=== PATIENT | male | born 1985 | race Caucasian/White ===

== ENCOUNTER 2021-06-01 15:09 | Emergency (ER) | payer OTHER ==
[2021-06-01 15:21] VITALS: BP 160/116
[2021-06-01] MEDS ORDERED: predniSONE 20 MG TABLET PO STA (16:54)
[2021-06-01] MEDS ORDERED: oxyCODONE 5 MG TABLET PO STA (16:54)
--- NOTE | 2021-06-01 16:57 | ED Physician Documentation ---
PD HPI LOWER EXT INJURY - Stated complaint Stated Complaint: LT LEG PX - Chief complaint Chief Complaint: Ext Problem - History obtained from History obtained from: Patient - Additional information Additional information: Otherwise healthy 35-year-old gentleman has a history of a lumbar laminectomy and discectomy in 2012. Over the last 4 weeks without specific trauma he has had numbness and tingling in his left leg. He had always had some numbness in the thigh but now it extends down to the knee and he has difficulty with dorsiflexion of the left foot due to weakness. He is being scheduled for an MRI by his physician but it has not been scheduled or approved by [facility] yet. He denies saddle anesthesia, fevers, incontinence. Review of Systems Constitutional: reports: Reviewed and negative Eyes: reports: Reviewed and negative Ears: reports: Reviewed and negative Nose: reports: Reviewed and negative Cardiac: reports: Reviewed and negative PD PAST MEDICAL HISTORY - Present Medications Home Medications: Ambulatory Orders Medication Instructions Recorded Confirmed Gabapentin [Neurontin] 300 mg PO TID 06/01/21 06/01/21 Naproxen [Naprosyn] 250 mg PO BID 06/01/21 06/01/21 Oxycodone HCl/Acetaminophen 1 - 2 each PO Q6H PRN #14 tablet 06/01/21 [Percocet 5-325 mg Tablet] Telmisartan 40 mg PO DAILY 06/01/21 06/01/21 predniSONE [Deltasone] 20 mg PO [id number] #21 tab 06/01/21 - Allergies Allergies/Adverse Reactions: Allergies Allergy/AdvReac Type Severity Reaction Status Date / Time No Known Drug Allergies Allergy Verified 06/01/21 15:16 PD ED PE NORMAL - Vitals Vital signs reviewed: Yes - General General: Alert and oriented X 3, No acute distress - HEENT HEENT: PERRL, EOMI - Neck Neck: Supple, no meningeal sign, No bony TTP - Cardiac Cardiac: RRR, No murmur - Respiratory Respiratory: Clear bilaterally - Back Back: No CVA TTP, No spinal TTP - Derm Derm: Normal color, Warm and dry - Extremities Extremities: Other (Diminished L4 reflexes bilaterally but more diminished on the left than the right. Diminished sensation on the lateral side of the left calf, throughout the leg is symmetric. Severe weakness in dorsiflexion of the left foot.) - Neuro Neuro: Alert and oriented X 3, Normal speech Results - Vitals Vitals: Vital Signs - 24 hr 06/01/21 15:18 Temperature 36.9 C Heart Rate 105 H Respiratory 18 Rate Blood Pressure 160/116 H O2 Saturation 97 Oxygen O2 Source Room air PD MEDICAL DECISION MAKING - ED course ED course: 35-year-old gentleman with lumbar radiculopathy without "red flag" for a spinal emergency. He is already on NSAIDs and gabapentin and this I will add some narcotics and a steroid burst pending follow-up. Departure - Departure Disposition: Home, Self Care Clinical Impression: Lumbar radiculopathy, acute Condition: Good Record reviewed to determine appropriate education?: Yes Instructions: ED Sciatica Prescriptions: predniSONE [Deltasone] 20 mg PO [id number] #21 tab Oxycodone HCl/Acetaminophen [Percocet 5-325 mg Tablet] 1 - 2 each PO Q6H PRN #14 tablet PRN Reason: pain Comments: I sent your prescriptions electronically to [facility] in [place]. I agree that your symptoms are consistent with a pinched nerve in your back, probably the L4-L5 left nerve root. Work with [facility] to get that MRI scheduled so that you can arrange appropriate specialist follow-up. Return for new or worsening symptoms. I am prescribing a short course of narcotic pain medication for you. These are potentially dangerous and addictive medications that should be used carefully. These medications may constipate you. Take an mkzq-jcq-xhgyrwv stool softener (docusate) twice daily with plenty of water while taking these medications. If you go 24 hours without a bowel movement, take bynl-knu-itvzijy miralax, per package instructions. Do not drink or drive while taking these medications. If you received narcotic or sedating medications while in the emergency department, do not drive for 24 hours. Store this medication in a safe, secure place and out of reach of children. It is a violation of federal law to give or sell this medication to another person or to use in a manner other than prescribed. The ED will not refill narcotic prescriptions, including prescriptions lost or stolen. To dispose of unwanted medications: 1. [facility] [address] in [place] has a medication drop box. They accept prescription medications (in pill form) Tuesday through [place] 9:00 a.m. to 5:00 p.m. 2. [employer] accepts prescription medications (in pill form only) for disposal year round. Call for more information. 3. Contact the [facility] for the next [facility] sponsored prescription drug collection event. , [phone], or [phone]; Note that many narcotic pain relievers also contain Tylenol/acetaminophen. Please ensure that your total dose of acetaminophen from all sources does not exceed 3 g (3000 mg) per day.
== END 2021-06-01 17:08 | disposition home or self-care (01) ==
LOC: ED 15:09
DX: M54.16 Radiculopathy, lumbar region (principal)
CPT/HCPCS: 99282; 99283; A9270; J7512

== ENCOUNTER 2021-09-05 13:54 | Emergency (ER) | payer OTHER ==
[2021-09-05 14:07] VITALS: BP 143/98
[2021-09-05] MEDS ORDERED: KETOROLAC 60 MG/2 ML VIAL IM STA (14:24)
[2021-09-05] MEDS ORDERED: HYDROmorphone 1 MG/ML CARPUJECT IM STA (14:24)
--- NOTE | 2021-09-05 14:25 | ED Physician Documentation ---
PD HPI BACK PAIN - Stated complaint Stated Complaint: LOWER BACK/L LEG PAIN - Chief complaint Chief Complaint: Back Pain - History obtained from History obtained from: Patient - Additional information Additional information: He has a long history of back issues despite his relatively young age. When he was in his mid 20s had an L3/L4 laminectomy and partial discectomy. Lately he has been dealing with symptoms that are likely referable to a left L4 radiculopathy with severe low back pain radiating to the hip the anterior knee and then the medial calf. It is burning pain. He cannot get comfortable. He had an MRI a few weeks ago at [facility] showing multilevel stenosis and radicular issues with at least moderate narrowing at the left L4 neural foramina which I think is the cause of his symptoms. He is on gabapentin and for the last few days this has not been sufficient to manage his pain. He denies saddle anesthesia, fevers, or incontinence. Review of Systems Constitutional: denies: Fever, Chills GI: denies: Abdominal Pain, Nausea, Vomiting, Diarrhea : denies: Dysuria, Frequency, Incontinent PD PAST MEDICAL HISTORY - Present Medications Home Medications: Ambulatory Orders Medication Instructions Recorded Confirmed Gabapentin [Neurontin] 300 mg PO TID 06/01/21 09/05/21 Telmisartan 40 mg PO DAILY 06/01/21 09/05/21 Duloxetine HCl [Cymbalta] 60 mg PO DAILY 09/05/21 09/05/21 Oxycodone HCl/Acetaminophen 1 - 2 each PO Q6H PRN #14 tablet 09/05/21 [Percocet 5-325 mg Tablet] predniSONE [Deltasone] 20 mg PO [id number] #21 tab 09/05/21 - Allergies Allergies/Adverse Reactions: Allergies Allergy/AdvReac Type Severity Reaction Status Date / Time No Known Drug Allergies Allergy Verified 09/05/21 14:03 PD ED PE NORMAL - Vitals Vital signs reviewed: Yes - General General: Alert and oriented X 3, No acute distress - Abdomen Abdomen: Normal bowel sounds, Soft, Non tender - Back Back: No CVA TTP, No spinal TTP, Other (Mild tenderness to the low lumbar spine and sciatic notch on the left) - Extremities Extremities: Other (Mildly diminished sensation in the left L4 distribution and weakness in dorsiflexion of the left foot which she says is now chronic.) - Neuro Neuro: Alert and oriented X 3, Normal speech - Psych Psych: Normal mood, Normal affect Results - Vitals Vitals: Vital Signs - 24 hr 09/05/21 14:03 Temperature 36.4 C L Heart Rate 96 Respiratory 18 Rate Blood Pressure 143/98 H O2 Saturation 98 Oxygen O2 Source Room air PD MEDICAL DECISION MAKING - ED course ED course: This patient has seemingly uncomplicated musculoskeletal back pain. The patient has no "red flags." Specifically denies IV drug use, fevers, incontinence, saddle anesthesia. Spinal epidural abscess was considered, given that the patient has no fever, is not diabetic, has no spinal tenderness, does not use IV drugs, and has no bilateral neurologic symptoms, the diagnosis of spinal epidural abscess is considered exceedingly unlikely. I am prescribing a short course of short-acting opioid pain medication for this patient. I have reviewed the patients [employer] and no concerning findings were noted. I have discussed that the opioids are for short term therapy only, and will not be refilled from the ED. The patient and family were counseled as to the diagnosis and need for follow- up. I counseled the patient with regard to signs and symptoms that would necessitate an urgent reevaluation in the emergency department. They understand they are welcome to return at any time if worse or if not improving as expected. This document was made in part using voice recognition software. While efforts are made to proofread this documents, sound alike and grammatical errors may occur. Departure - Departure Disposition: 01 Home, Self Care Clinical Impression: Lumbosacral radiculopathy at L4 Condition: Good Record reviewed to determine appropriate education?: Yes Instructions: ED Sciatica Prescriptions: predniSONE [Deltasone] 20 mg PO [id number] #21 tab Oxycodone HCl/Acetaminophen [Percocet 5-325 mg Tablet] 1 - 2 each PO Q6H PRN #14 tablet PRN Reason: pain Comments: You can continue the gabapentin you are on. I sent your prescriptions electronically to [facility] in [place]. Call your doctor to arrange a follow-up appointment, make the next available appointment. In the interim, return anytime if worse or if new symptoms develop. I am prescribing a short course of narcotic pain medication for you. These are potentially dangerous and addictive medications that should be used carefully. These medications may constipate you. Take an adkm-xsv-siytuxy stool softener (d ocusate) twice daily with plenty of water while taking these medications. If you go 24 hours without a bowel movement, take kaen-qwf-mexyume miralax, per package instructions. Do not drink or drive while taking these medications. If you received narcotic or sedating medications while in the emergency department, do not drive for 24 hours. Store this medication in a safe, secure place and out of reach of children. It is a violation of federal law to give or sell this medication to another person or to use in a manner other than prescribed. The ED will not refill narcotic prescriptions, including prescriptions lost or stolen. To dispose of unwanted medications: 1. [facility] [address] in [place] has a medication drop box. They accept prescription medications (in pill form) Tuesday through Tuesday 9:00 a.m. to 5:00 p.m. 2. [facility] [place] [employer] accepts prescription medications (in pill form only) for disposal year round. Call for more information. 3. Contact the [facility] for the next [facility] sponsored prescription drug collection event. , [phone], or x [phone]; Note that many narcotic pain relievers also contain Tylenol/acetaminophen. Please ensure that your total dose of acetaminophen from all sources does not exceed 3 g (3000 mg) per day.
== END 2021-09-05 15:15 | disposition home or self-care (01) ==
LOC: ED 13:54
DX: M54.17 Radiculopathy, lumbosacral region (principal)
CPT/HCPCS: 96372; 99283; 99284; J1170

== ENCOUNTER 2022-05-06 10:45 | Emergency (ER) | payer OTHER ==
[2022-05-06] MEDS ORDERED: oxyCODONE 5 MG TABLET PO STA (13:00)
[2022-05-06] MEDS ORDERED: LIDOCAINE PATCH 5% TOP STA (13:00)
--- NOTE | 2022-05-06 13:03 | ED Physician Documentation ---
PD HPI BACK PAIN - Stated complaint Stated Complaint: BACK PX/NUMBNESS - Chief complaint Chief Complaint: Back Pain - History obtained from History obtained from: Patient - Additional information Additional information: Patient is a 36-year-old male with a long history of low back pain.He has had prior back surgeries including a laminectomy at L3-L4 and partial discectomy.4 months ago he had an L4-L5 laminectomy at [facility]. He has continued to have low back pain with numbness radiating down the left leg prior to and after his surgery. It is an aching and burning pain. He has been in touch with his Spine surgeon and an outpatient MRI has been ordered and is scheduled for early May. His pain has worsened over the past 4 to 5 days. Patient denies doing any activity or any known injury that would have worsened his pain.He has been on steroids in the past although it has been several months but did not find this medication particularly helpful. He denies fevers, bowel or bladder incontinence, saddle anesthesia, new weakness. Review of Systems Constitutional: denies: Fever Nose: denies: Congestion Cardiac: denies: Chest pain / pressure Respiratory: denies: Dyspnea GI: denies: Abdominal Pain : denies: Dysuria Musculoskeletal: reports: Back pain Neurologic: reports: Numbness. denies: Headache PD PAST MEDICAL HISTORY - Past Medical History Cardiovascular: Hypertension - Past Surgical History Ortho: Spine surgery - Present Medications Home Medications: Ambulatory Orders Medication Instructions Recorded Confirmed Telmisartan 40 mg PO DAILY 06/01/21 05/06/22 Cyclobenzaprine [Flexeril] 10 mg PO TID PRN #15 tablet 05/06/22 Lidocaine Patch 5% [Lidoderm Patch] 1 patch TOP DAILY PRN #10 patch 05/06/22 Oxycodone HCl/Acetaminophen 1 each PO Q6H PRN #12 tablet 05/06/22 [Percocet 5-325 mg Tablet] - Allergies Allergies/Adverse Reactions: Allergies Allergy/AdvReac Type Severity Reaction Status Date / Time No Known Drug Allergies Allergy Verified 05/06/22 11:04 - Social History Does the pt smoke?: No Smoking Status: Never smoker Does the pt drink ETOH?: No Does the pt have substance abuse?: No - Immunizations Immunizations are current?: Yes - POLST Patient has POLST: Yes PD ED PE NORMAL - General General: Alert and oriented X 3, No acute distress, Well developed/nourished - HEENT HEENT: Atraumatic - Neck Neck: Supple, no meningeal sign, No bony TTP - Cardiac Cardiac: RRR, No murmur - Respiratory Respiratory: No respiratory distress, Clear bilaterally - Abdomen Abdomen: Soft, Non tender - Back Back: No spinal TTP - Derm Derm: Warm and dry - Extremities Extremities: No edema, Other (Mildly decreased sensation in L5 distribution and Weak dorsiflexion on the left - Patient and prior records appears to be chronic; Pedal pulses intact bilaterally) Results - Vitals Vitals: Vital Signs - 24 hr 05/06/22 05/06/22 10:59 13:56 Temperature 36.8 C Heart Rate 98 76 Respiratory 16 16 Rate Blood Pressure 144/99 H 135/76 H O2 Saturation 96 97 Oxygen O2 Source Room air PD Medical Decision Making - ED course ED course: Patient presenting for evaluation of low back pain with radiculopathy. He has no red flag signs or symptoms in regards to his back pain Such as history of IV drug use, fever, saddle anesthesia or bowel or bladder incontinence.Epidural abscess and hematoma are considered unlikely given his history and exam. Patient does have an outpatient MRI scheduled. I do not see indications for emergent MRI today. I have prescribed a small amount of pain medication for the patient in addition to muscle relaxers as he does also report feeling some tightness in the low back. I explained he needs to have close follow-up with [facility] or his spine surgeon. Patient is aware of concerning symptoms to return for and is ambulatory at discharge. Departure - Departure Disposition: 01 Home, Self Care Clinical Impression: Lumbar radiculopathy Condition: Stable Instructions: ED Sciatica Prescriptions: Cyclobenzaprine [Flexeril] 10 mg PO TID PRN #15 tablet PRN Reason: Spasms Lidocaine Patch 5% [Lidoderm Patch] 1 patch TOP DAILY PRN #10 patch PRN Reason: pain Oxycodone HCl/Acetaminophen [Percocet 5-325 mg Tablet] 1 each PO Q6H PRN #12 tablet PRN Reason: pain Comments: [facility] [place] Please keep your MRI appointments. You may wish to contact your PCM through the [facility] for closer follow-up if you are not able to get in with your surgeon. Your PCM may also be able to send your MRI request to [facility] to see if we are able to schedule it sooner here. Anytime you have any worsening symptoms please consider return to the emergency department. I am prescribing a short course of narcotic pain medication for you. These are potentially dangerous and addictive medications that should be used carefully. These medications may constipate you. Take an hgjm-nyn-hfumafe stool softener (docusate) twice daily with plenty of water while taking these medications. If you go 24 hours without a bowel movement, take fvqb-vaa-bxjrift miralax, per package instructions. Do not drink or drive while taking these medications. If you received narcotic or sedating medications while in the emergency department, do not drive for 24 hours. Store this medication in a safe, secure place and out of reach of children. It is a violation of federal law to give or sell this medication to another person or to use in a manner other than prescribed. The ED will not refill narcotic prescriptions, including prescriptions lost or stolen. To dispose of unwanted medications: 1. [facility] [address] in [place] has a medication drop box. They accept prescription medications (in pill form) Tuesday through Tuesday 9:00 a.m. to 5:00 p.m. 2. [facility] accepts prescription medications (in pill form only) for disposal year round. Call for more information. 3. Contact the [facility] for the next [facility] sponsored prescription drug collection event. , [phone], or [phone]; Note that many narcotic pain relievers also contain Tylenol/acetaminophen. Please ensure that your total dose of acetaminophen from all sources does not exceed 3 g (3000 mg) per day. Discharge Date/Time: 05/06/22 13:57
[2022-05-06 13:57] VITALS: BP 135/76
== END 2022-05-06 13:57 | disposition home or self-care (01) ==
LOC: ED 10:45
DX: M54.16 Radiculopathy, lumbar region (principal); I10 Essential (primary) hypertension
CPT/HCPCS: 99283; 99284; A9270

== ENCOUNTER 2022-05-07 13:21 | Outpatient (CLI) | payer OTHER ==
--- NOTE | 2022-05-07 15:21 | MRI Report ---
PROCEDURE: CERVICAL SPINE WO INDICATIONS: CERVICAL RADICULOPATHY TECHNIQUE: Noncontrast sagittal T1 spin echo and T2 fast spin echo, sagittal STIR, foraminal oblique sagittal T2 fast spin echo, and axial gradient echo or T2 fast spin echo through the cervical spine. COMPARISON: None. FINDINGS: Image quality: Excellent. Alignment and Curvature: There is normal bony alignment. Bone Marrow: Marrow demonstrates normal overall signal. Spinal Cord: Visualized spinal cord has normal size and signal. No cerebellar tonsillar herniation. Paraspinous Soft Tissues: No paravertebral masses. Prevertebral soft tissues are normal in thicknes s. C2-C3: Right uncovertebral joint hypertrophy. No canal stenosis or foraminal stenosis. C3-C4: Minimal disc bulge, eccentric to the left. AP diameter of the canal is 11.6 mm. No canal emperatriz nosis or foraminal stenosis. C4-C5: Mild disc bulge. AP diameter of the canal is 11.2 mm. Bilateral uncovertebral joint hypertrop hy. Moderate bilateral foraminal narrowing with mild flattening deformity on the exiting bilateral C5 nerve roots. C5-C6: Diffuse disc bulge with mild superimposed central posterior disc protrusion indenting on the cord. AP diameter of the canal is 8.8 mL. There is right uncovertebral joint hypertrophy. There is a left facet joint cyst there is bilateral moderate to severe foraminal narrowing with bilateral forami nal C6 nerve root impingement.. C6-C7: No canal stenosis or foraminal stenosis. C7-T1: No canal stenosis or foraminal stenosis. IMPRESSION: 1. Mild diffuse spondylitic change. 2. The significant findings are at C5-C6, where there is a central posterior disc protrusion contribu ting to moderate canal stenosis. There is bilateral moderate to severe foraminal narrowing with bilat eral foraminal C6 nerve root impingement. 3. There is moderate bilateral foraminal narrowing at C4-C5. Reviewed by: Daniel Mendoza MD on 05/07/2022 3:20 PM PST Approved by: Daniel Mendoza MD on 05/07/2022 3:20 PM PST Station ID: [id number]
== END 2022-05-07 13:22 | disposition home or self-care (01) ==
LOC: DI 13:21
PROVIDERS: ATTEND General Practice
DX: M50.11 Cervical disc disorder with radiculopathy, high cervical region (principal); M47.22 Other spondylosis with radiculopathy, cervical region; M48.02 Spinal stenosis, cervical region

== ENCOUNTER 2022-12-22 19:13 | Outpatient (CLI) | payer OTHER | END 2022-12-22 19:14 | disposition home or self-care (01) | LOC: SC 19:13 | PROVIDERS: ATTEND Nurse Practitioner Family | DX: G47.33 Obstructive sleep apnea (adult) (pediatric) (principal); E66.9 Obesity, unspecified; Z68.35 Body mass index [BMI] 35.0-35.9, adult | CPT/HCPCS: 95810 ==

== ENCOUNTER 2023-01-18 13:00 | Outpatient (CLI) | payer OTHER ==
--- NOTE | 2023-01-18 13:41 | Sleep Patient Instructions ---
Sleep Center Visit Summary - Patient Visit Information Reason for Visit: Sleep study follow-up - Patient Instructions Instructions Attached: CPAP, CPAP Dc Additional Instructions: You are being started on CPAP therapy with pressure setting at 4-15 cmH2O. You will need to call the sleep care office to set up your follow up once you have your APAP machine and we will schedule a visit to check compliance and response to therapy at that time. You may call the office with any concerns about pressure feeling too low or too much for adjustment, if needed. You should contact DME for any questions or concerns about mask or equipment. Please call office to schedule a follow up appointment in the sleep care office one month after obtaining CPAP. - Clinic Information Contact: [facility] [address] [place] [address] [email or web address] T: [phone]
--- NOTE | 2023-01-18 13:44 | SLEEP CARE CONSULTATION ---
Information from patient questionnaire entered by Kaitlin Staples. I have reviewed and concur with the information entered by Kaitlin Staples. This document represents the service I personally performed and the decisions made by , Lilo Samano ARNP. History of Present Illness Service Date and Time: 01/18/2023 1300 Initial [place] Sleepiness Scale score: 8 (12/01/22) Current [place] Sleepiness Scale score: 7 (01/18/23) Additional HPI information: UBALDO GRECO returns for follow up and results of the recently performed polysomnography. Sleep study showed mild obstructive sleep apnea with an average AHI of 8.6 and antonio oxygen saturation of 81%. I explained the pathophysiology behind obstructive sleep apnea. We then spent quite a bit of time discussing different treatment options. For mild obstructive sleep apnea, surgery and oral appliance are alternatives to nasal CPAP therapy but in moderate or severe cases, nasal CPAP is the most effective and reliable treatment. Because apnea is primarily in supine position, then po sitional management therapy could be effective. Methods discussed such as positioning with pillows, using a T-shirt with tennis balls in the back or commercial products that have a pillow format on back to prevent supine sleep. I reviewed the impact of weight changes on sleep apnea and strongly recommended losing weight. After some discussion, the patient opted to go with the nasal CPAP therapy. Nasal autoCPAP set at 4-15 cmH20 will be ordered with rationale explained. A manual titration study will be ordered if unable to find optimal pressure with office adjustments. I explained how CPAP machine works and what to expect when using the machine. Using CPAP every night in order to get used to it was emphasized. Patient advised to put CPAP mask on before getting into bed so as not to fall asleep without CPAP. To assist acclimation to CPAP use, it could also be used for a short time during day while reading or watching TV. The patient was instructed to call the CPAP supplier to discuss any mechanical problem that may occur. If the mask given is uncomfortable or is difficult to keep on through the night even with adjustment, contact the CPAP supplier as many will replace with another mask style if notified before 30 days. If snoring or perceives is not getting enough air or too much air from the machine, notify this office. Patient does not drink alcohol. Patient was cautioned about risks of drowsy driving until sleepiness symptoms resolve. Patient denies drowsy driving. Sleep Study - Results Type of Sleep Study: Polysomnography (COMPLETED 12/22/22) Prior sleep studies: Yes Polysomnography/Home Sleep Study results: IMPRESSION: The quality of the study is good. The patient had normal sleep efficiency. The sleep architecture was abnormal for sleep fragmentation and reduced amount of time spent in slow wave sleep (N3). Respiratory monitoring showed mild obstructive sleep apnea-hypopnea (AHI = 8.6) associated with frequent arousals, oxyhemoglobin desaturation and mild hypoxia (antonio oxygen saturation of 81%). The respiratory events occurred mainly during supine sleep (supine AHI = 11.5; non-supine = 5.50). Snore was light to loud in intensity. There was no significant periodic leg movement of sleep. Cardiac rhythm was normal sinus rhythm without significant arrhythmia. No abnormal behavior (parasomnia) observed during the night. Allergies and Home Medications Known drug allergies: No Drug allergies reviewed: Yes Home medication list reviewed: Yes (no changes) Allergy and home medication list: Allergies No Known Drug Allergies Allergy (Verified 01/14/23 09:44) Review of Systems Review of systems same as previous: Yes (no changes) Physical Exam Vital signs obtained and entered by: KAITLIN Spain MA Blood Pressure: 136/98 (LEFT ARM) Cuff size: regular Heart Rate: 115 O2 Saturation: 96 Height: 6 ft 4 in Weight: 297 lb 3.2 oz Body Mass Index: 36.1 BMI Classification: Obese Impression and Plan 1. Obstructive Sleep Apnea-Hypopnea Syndrome, mild, with lowest oxygen saturation of 81%. Obviously this is the cause of the patients symptoms of unrefreshed sleep, and excessive daytime sleepiness. Positive pressure therapy could benefit hypertension, anxiety and depression. As mentioned above, the patient will be started on nasal autoCPAP therapy with pressure set at 4-15 cmH2 O. A manual titration study will be completed if unable to find optimal treatment pressure with office adjustments. Compliance guidelines also reviewed. A copy of compliance guidelines will be given for reference at check out. Because the apnea is more severe supine, I instructed to avoid sleeping supine using pillow positioning until able to start CPAP use. 2. Hypoxemia, mild, with a antonio oxygen saturation of 81% and 6 minutes spent under 90%. His baseline oxygen saturation was normal with an average oxygen saturation of 93%. 3. Obesity, unspecified. Currently patients BMI is 36.1. Obesity increases the risk of apnea, CPAP pressure requirements and overall health risks especially cardiovascular and diabetes. Thus patient is advised to lose weight. * Nasal auto CPAP therapy, pressure at 4-15 cm H2O. * Attempt to lose weight. * Avoid alcohol consumption near bedtime. * Avoid supine sleep until using CPAP. * The patient is again cautioned about driving until sleepiness completely resolves. * Return one month after CPAP obtained. I will assess response to therapy and compliance at that time. Counseling Topics: Weight loss health impact Prescriptions: Auto CPAP, Device supplies Visit Type: In Office Time Spent with Patient (minutes): 22 Provider Statement: I spent 100% of the Face to Face Visit with the patient with greater than 50% spent counseling the patient and coordination of care.
[2023-01-18 13:50] VITALS: BP 136/98; O2SAT 96
== END 2023-01-18 13:01 | disposition home or self-care (01) ==
LOC: SC 13:00
PROVIDERS: ATTEND Nurse Practitioner Family
DX: G47.33 Obstructive sleep apnea (adult) (pediatric) (principal); R09.02 Hypoxemia; E66.9 Obesity, unspecified; Z68.36 Body mass index [BMI] 36.0-36.9, adult
CPT/HCPCS: 99212; 99213

== ENCOUNTER 2023-05-27 11:26 | Outpatient (CLI) | payer OTHER ==
--- NOTE | 2023-05-27 12:04 | Sleep Patient Instructions ---
Sleep Center Visit Summary - Patient Visit Information Reason for Visit: First Compliance with PAP therapy - Patient Instructions Instructions Attached: Apnea Sleep Mouthpieces Additional Instructions: You were here for follow up of CPAP therapy. You will be continued on CPAP therapy with pressure at 5-8 cmH2O. Please let us know if the pressure change is uncomfortable and we can make further adjustments of the pressure. You are having difficulty with the CPAP, so I have written for an oral appliance. You should follow up with sleep care in 1 month after using the oral appliance. You may contact us sooner for any questions or concerns. - Clinic Information Contact: [facility] [address] [place] [id number] [email or web address] T: [phone]
[2023-05-27 12:12] VITALS: BP 118/83; O2SAT 94
--- NOTE | 2023-05-27 12:12 | SLEEP CARE CONSULTATION ---
Information from patient questionnaire entered by Kaitlin Staples. I have reviewed and concur with the information entered by Kaitlin Staples. This document represents the service I personally performed and the decisions made by me, Lilo Samano ARNP. History of Present Illness Service Date and Time: 05/27/2023 112 Previous diagnosis: Mild, Obstructive Sleep Apnea-Hypopnea Syndrome AHI: 8.6 Reason for follow up: first compliance Equipment type: CPAP (ResMed Airsense 11; s/u 02/2023) Equipment obtained from: [employer] ([employer] supplies) Mask style: Full face Mask brand: Respironics (Dreamwear, medium cushion) Backup mask available: Yes (other mask, nasal masks) Last cushion change: couple months Prior sleep studies: Yes Type of Sleep Study: Polysomnography (COMPLETED 12/22/22) HPI additional information: UBALDO GRECO was diagnosed to have mild, AHI 8.6, obstructive sleep apnea- hypopnea syndrome and returned today for CPAP therapy first compliance follow- up. Sleep Study - Results Type of Sleep Study: Polysomnography (COMPLETED 12/22/22) Prior sleep studies: Yes CPAP Compliance Data - Data Reviewed with Patient Average duration of nightly device use: 5 HRS 38 MINS Compliance rate %: 87 (03/10/23-04/08/23; 30/30 days used) Current pressure setting (cmH2O): 4-15 (median 5.0, avg 7.2, max 8.3) Average residual AHI: 1.2 Central apnea: 0 Obstructive apnea: 1 Average large leak: 0.1 L/min Compliance data discussion: Patient tried really hard in the first month to keep his use compliant and he did get 84% compliance. He states he has had a lot of difficulty with mask discomfort and has tried nasal masks including one that goes over the nose and under the nose with a lot of facial discomfort, soreness around his nose or feelings of claustrophobia. He also tried a fullface hybrid mask which still pushed up on his nose uncomfortably. His compliance in last 30 days is 3%. Subjective Missed days of use due to: reports: mask issues Patient concerns: reports: mask discomfort, other. denies: aerophagia, air blowing in eyes, mask leak noise, condensation in mask/hose, nasal congestion, dry mouth, nose, throat, epistaxis Observed to snore while using device: No Current pressure setting perceived as: comfortable On therapy, patient: reports: sleeping better (little bit), awakening more refreshed (little bit). denies: drowsiness while driving Initial [place] Sleepiness Scale score: 8 (12/01/22) Current [place] Sleepiness Scale score: 4 (05/27/23) Allergies and Home Medications Known drug allergies: No Drug allergies reviewed: Yes Home medication list reviewed: Yes (no changes) Allergy and home medication list: Allergies No Known Drug Allergies Allergy (Verified 05/25/23 10:26) Review of Systems Review of systems same as previous: Yes (NO CHANGE) Physical Exam Vital signs obtained and entered by: KAITLIN Spain MA Blood Pressure: 118/83 (LEFT ARM) Cuff size: regular Heart Rate: 116 O2 Saturation: 94 Height: 6 ft 4 in Weight: 285 lb 6.4 oz Body Mass Index: 34.7 BMI Classification: Obese Impression and Plan 1. Obstructive Sleep Apnea-Hypopnea Syndrome, mild, with good treatment compliance and good apnea control. On CPAP therapy, the patient has better sleep quality and is more rested overall. Patient has significant improvement of his sleep apnea when using the CPAP but has had multiple issues with mask discomfort. I fit him to a AirTouch F20, large cushion. He would like to try this at home to see if it is more comfortable and easier to use. The patients pressure will be changed to autoCPAP 5-8 cmH20 to reflect pressure being used. Patient advised to contact me if pressure change is uncomfortable so that it can be adjusted. Goals for apnea control discussed. After some further discussion of his treatment options, Ubaldo would like to try an oral appliance. I will write to get one made and we will see if this is a more comfortable option for him. A follow up will be made to see if appliance has reduced symptoms. If so, another polysomnography will be ordered with use of the oral appliance to check efficacy in reducing apnea. I advised him to sleep non-supine if unable to use the CPAP because he has less apneas when sleeping on his sides. He voiced understanding. Patient's apnea severity and rationale for treatment to reduce apnea, improve sleep quality and reduce cardiovascular and cerebrovascular events was reviewed. I also reviewed the benefit of consistent device use of CPAP for hypertension, depression and anxiety. 2. Obesity, unspecified. Currently patients BMI is 34.7. Obesity increases the risk of apnea, CPAP pressure requirements and overall health risks especially cardiovascular and diabetes. Thus patient is advised to lose weight. * Change auto CPAP pressure to 5-8 cmH2O * Oral appliance * Notify me if snoring with mask or feeling that the pressure is too much or too little * Attempt to lose weight * Call this office if any problems using CPAP * Return for follow up in one month after obtaining oral appliance, or sooner if concerns arise Adjust device pressure to (cmH2O): 5-8 Counseling Topics: Spare mask, Weight loss health impact Prescriptions: Other (Oral appliance) Follow up with Sleep Care in: other (one month after obtaining oral appliance) Visit Type: In Office Time Spent with Patient (minutes): 27 Provider Statement: I spent 100% of the Face to Face Visit with the patient with greater than 50% spent counseling the patient and coordination of care.
== END 2023-05-27 11:27 | disposition home or self-care (01) ==
LOC: SC 11:26
PROVIDERS: ATTEND Nurse Practitioner Family
DX: G47.33 Obstructive sleep apnea (adult) (pediatric) (principal); E66.9 Obesity, unspecified; Z68.34 Body mass index [BMI] 34.0-34.9, adult
CPT/HCPCS: 99212; 99213